=== PATIENT | female | born 1950 | race Caucasian/White ===

== ENCOUNTER 2020-03-17 14:35 | Outpatient (CLI) | payer MEDICARE, SELFPAY ==
--- NOTE | ~2020-03-17 | MM_ITS ---
EXAMINATION: MM screening radha BI w jaime HISTORY: Screening mammogram TECHNIQUE: Craniocaudal and mediolateral oblique 3-D tomosynthesis images were obtained and synthetic 2-D images were generated. CAD analysis was submitted and interpreted. COMPARISON: 03/03/2019, 02/26/2018, 02/22/2017 bilateral digital screening mammogram examinations BREAST PARENCHYMAL COMPOSITION: There are scattered areas of fibroglandular density. FINDINGS: Occasional benign calcifications. There is no evidence of suspicious mass, calcification, o r architectural distortion to suggest malignancy in either breast. There has been no suspicious inter hazel change. IMPRESSION: 1. No mammographic evidence of malignancy. 2. Recommend routine screening mammography in one year. BI-RADS Category 2: Benign finding(s). Reviewed, dictated and finalized at location A.
== END 2020-03-17 14:36 | disposition home or self-care (01) ==
LOC: ANHIMG 14:37
PROVIDERS: PCP Nurse Practitioner Family; Visit Provider Nurse Practitioner Family
DX: Z12.31 Encounter for screening mammogram for malignant neoplasm of breast (principal)
CPT/HCPCS: 77063; 77067

== ENCOUNTER 2021-03-21 17:23 | Outpatient (CLI) | payer MEDICARE, SELFPAY ==
--- NOTE | ~2021-03-21 | MM_ITS ---
EXAMINATION: MM screening radha BI w jaime HISTORY: Screening mammogram TECHNIQUE: Craniocaudal and mediolateral oblique 3-D tomosynthesis images were obtained and synthetic 2-D images were generated. CAD analysis was submitted and interpreted. COMPARISON: 03/17/2020, 03/03/2019, 02/26/2018 bilateral digital screening mammogram examinations BREAST PARENCHYMAL COMPOSITION: There are scattered areas of fibroglandular density. FINDINGS: There is no evidence of suspicious mass, calcification, or architectural distortion to sugg est malignancy in either breast. There has been no suspicious interval change. IMPRESSION: 1. No mammographic evidence of malignancy. 2. Recommend routine screening mammography in one year. BI-RADS Category 1: Negative Reviewed, dictated and finalized at location A.
== END 2021-03-21 17:24 | disposition home or self-care (01) ==
LOC: ANHIMG 17:25
PROVIDERS: PCP Nurse Practitioner Family; Visit Provider Nurse Practitioner Family
DX: Z12.31 Encounter for screening mammogram for malignant neoplasm of breast (principal)
CPT/HCPCS: 77063; 77067

== ENCOUNTER 2021-11-30 12:51 | Outpatient (CLI) | payer MEDICARE, SELFPAY ==
--- NOTE | ~2021-11-30 | US_ITS ---
EXAMINATION: US soft tissue UE LT DATE: 11/30/2021 13:37 INDICATION: Localized swelling, mass and lump at the left upper limb region of concern at the posteri or left upper arm TECHNIQUE: Multiple grayscale and Doppler ultrasound images of the posterior left upper arm were obta ined. COMPARISON: None FINDINGS: Subcutaneous tissues are unremarkable. There is a subtle approximately 12.8 x 7.2 x 6.1 cm isoechoic mass within the deeper musculature of the left upper arm. Portions of the margin of the apparent mass are not completely included within the [id number] of imaging. No other abnormal masses or fluid c ollections identified. IMPRESSION: 1. 12.8 x 7.2 x 6.1 cm isoechoic masslike region within the deeper musculature at the posterior left upper arm. Differential includes artifactual pseudomass related to either the normal fasicular penelope ecture of the muscle, focal myositis or neoplasm either benign such as intramuscular lipoma or malign ant. Would recommend further evaluation with postcontrast MRI. Reviewed, dictated and finalized at location B. IMPRESSION: 1. 12.8 x 7.2 x 6.1 cm isoechoic masslike region within the deeper musculature at the posterior left upper arm. Differential includes artifactual pseudomass r elated to either the normal fasicular architecture of the muscle, focal myositi s or neoplasm either benign such as intramuscular lipoma or malignant. Would re commend further evaluation with postcontrast MRI.
== END 2021-11-30 12:52 | disposition home or self-care (01) ==
PROVIDERS: PCP Nurse Practitioner Family; Visit Provider Nurse Practitioner Family
DX: R22.32 Localized swelling, mass and lump, left upper limb (principal)
CPT/HCPCS: 76882

== ENCOUNTER 2022-05-03 09:01 | Outpatient (CLI) | payer MEDICARE, SELFPAY ==
--- NOTE | ~2022-05-03 | MM_ITS ---
EXAMINATION: MM screening radha BI w jamie HISTORY: Screening TECHNIQUE: Craniocaudal and mediolateral oblique 3-D tomosynthesis images were obtained and synthetic 2-D images were generated. CAD analysis was submitted and interpreted. COMPARISON: Comparison to multiple prior studies sequentially, with oldest reviewed study dated 10/2015. BREAST PARENCHYMAL COMPOSITION: Breast composed of scattered areas of fibroglandular density FINDINGS: There is no evidence of suspicious mass, calcification, or architectural distortion to sugg est malignancy in either breast. There has been no suspicious interval change. IMPRESSION: 1. No mammographic evidence of malignancy. 2. Recommend routine screening mammography in one year. BI-RADS Category 1: Negative Reviewed, dictated and finalized at location A.
== END 2022-05-03 09:02 | disposition home or self-care (01) ==
LOC: ANHIMG 09:02
PROVIDERS: PCP Nurse Practitioner Family; Visit Provider Nurse Practitioner Family
DX: Z12.31 Encounter for screening mammogram for malignant neoplasm of breast (principal)
CPT/HCPCS: 77063; 77067

== ENCOUNTER 2022-05-09 09:22 | Outpatient (CLI) | payer MEDICARE, SELFPAY ==
--- NOTE | ~2022-05-09 | DEXA_ITS ---
Bone Density Report Name: ANGIE DAVIS Age: 72 Sex: Female Ethnicity: White Date of : 1950 Indication: postmenopausal; screening for osteoporosis; height loss; Referring Provider: GEORGETTE, ISSAC Dent Study: Bone densitometry was performed. Exam Date: May 09, 2022 Accession number: [id number] Bone Density: Region BMD T-score Z-score Classification AP Spine(L1-L4) 0.948 -0.9 1.2 Normal Femoral Neck (Left) 0.799 -0.4 1.3 Normal Total Hip (Left) 0.951 0.1 1.6 Normal Femoral Neck (Right) 0.733 -1.0 0.7 Normal Total Hip (Right) 0.949 0.1 1.6 Normal Total Hip Mean 0.950 0.1 1.6 Normal World Health Organization criteria for BMD impression classify patients as: Normal (T-score at or above -1.0), Osteopenia (T-score between -1.0 and -2.5), or Osteoporosis (T-score at or below -2.5). 10-year Fracture Risk: FRAX not reported because: All T-scores for Spine Total, Hip Total, Femoral Neck at or above -1.0 Clinical Information Provided by Patient: Has used the following medications: Vitamin D, Calcium Patient maximum height was 67.5 Menopause Age: 57 Drinks caffeinated beverages Onset of menses at age 15 Number of children 3 Impression: The patient has normal bone mass. Discussion: BONE DENSITY IS ABOVE THE MINIMUM DESIRABLE LEVEL AT ALL SKELETAL SITES TESTED. This patient?s bone mineral density is above the minimum desirable level (T-score -1.0 or better) at all sites measured. The patient should follow a healthful lifestyle (good nutrition with adequate calcium and vitamin D, and appropriate weight-bearing exercise). Follow-Up: Consider repeating this study in 5 years or sooner if there is some new clinical indication. Reported by: MACK on 05/09/2022 10:03:00 AM. Reviewed, dictated and finalized at location ATiffanie LANDEROS
== END 2022-05-09 09:23 | disposition home or self-care (01) ==
PROVIDERS: PCP Nurse Practitioner Family; Visit Provider Nurse Practitioner Family
DX: Z78.0 Asymptomatic menopausal state (principal)
CPT/HCPCS: 77080

== ENCOUNTER 2022-10-22 22:48 | Emergency (ER) | payer MEDICARE, SELFPAY ==
--- NOTE | ~2022-10-22 | XR_ITS ---
EXAMINATION: XR foot LT 2V DATE: 10/23/2022 01:41 INDICATION: Soft tissue infection of left second toe. TECHNIQUE: 2 views of left foot were obtained. COMPARISON: None. FINDINGS: Bone alignment is normal. There are changes of bunionectomy. No fracture. There are surgica l changes of head of second distal phalanx and base of second middle phalanx. There is a screw in the second proximal, middle, and distal phalanges. There is mild osteoarthritis of first metatarsophalan geal joint and some of the interphalangeal joints. IMPRESSION: 1. No specific evidence of osteomyelitis. 2. Arthrodesis procedure involving the second digit. 3. Bunionectomy. 4. Mild polyarticular osteoarthritis. Reviewed, dictated and finalized at location A.
[2022-10-22 22:50] VITALS: BP 156/68; PULSE 92; RESP 18; TEMP 36.1; O2SAT 99
--- NOTE | 2022-10-23 01:14 | ED.EXTPRO ---
HPI - Extremity Problem General Chief complaint: Extremity Problem,Nontraumatic Stated complaint: infected left second toe Time Seen by Provider: 10/23/22 01:01 Source: patient Mode of arrival: ambulatory Limitations: no limitations History of Present Illness HPI Narrative: This is a 72-year-old female presents the ED with chief complaint of a left second toe pain ongoing for about a week. States that pain and swelling is worsening in the toe. States redness is limited to the toe and does not extend into the foot. She reports some drainage for the past couple of days. States she had a hammertoe operation in August but has not had any problems with it. Pain is worse with walking. Denies fevers, chills, numbness, weakness. Denies any injuries to the foot. Related Data Home Medications Medication Instructions Recorded Confirmed amlodipine 5 mg tablet 5 mg PO DAILY 02/23/22 04/23/22 celecoxib 200 mg capsule 200 mg PO DAILY 02/23/22 04/23/22 cyclobenzaprine 10 mg tablet 10 mg PO TID 02/23/22 04/23/22 fluticasone propionate 50 1 spray intranasal DAILY 02/23/22 04/23/22 mcg/actuation nasal spray,suspension levothyroxine 150 mcg capsule 150 mcg PO DAILY 02/23/22 04/23/22 losartan 100 mg tablet 100 mg PO DAILY 02/23/22 04/23/22 metformin 500 mg/5 mL oral solution 500 mg PO DAILY 02/23/22 04/23/22 metoprolol succinate 50 mg 50 mg PO DAILY 02/23/22 04/23/22 tablet,extended release 24 hr montelukast 10 mg tablet 10 mg PO DAILY 02/23/22 04/23/22 omeprazole 40 mg capsule,delayed 40 mg PO DAILY 02/23/22 04/23/22 release pravastatin 40 mg tablet 40 mg PO DAILY 02/23/22 04/23/22 zolpidem 6.25 mg tablet,extended 6.25 mg PO QHS 02/23/22 04/23/22 release,multiphase Allergies Allergy/AdvReac Type Severity Reaction Status Date / Time grass pollen Allergy Unknown Unknown Verified 10/22/22 22:48 No Known Allergies Allergy Verified 10/22/22 22:48 Review of Systems Review of Systems: CONSTITUTIONAL: Denies fever, chills, or sweats. EYES: Denies visual changes, redness, or discharge. ENT: Denies rhinorrhea, congestion, sore throat, or otalgia. CARDIOVASCULAR: Denies chest pain, palpitations, or edema. RESPIRATORY: Denies cough or dyspnea. GASTROINTESTINAL: Denies abdominal pain, nausea, vomiting, or diarrhea. GENITOURINARY: Denies dysuria or hematuria. SKIN: Denies rash or itching. MUSCULOSKELETAL: Denies back pain, joint pain, or myalgia. NEUROLOGIC: Denies headache, numbness, dizziness, or weakness. PSYCHIATRIC: Denies anxiety or depression. [facility] Past Medical History Medical History Carpal tunnel syndrome Surgical History Surgical History H/O total knee replacement History of bladder surgery History of bunionectomy Presence of left artificial knee joint Presence of right artificial knee joint Family History Family History Other Family history of arthritis Family history of malignant neoplasm of breast in first degree relative Family history of malignant neoplasm of urinary bladder Social History Social History Smoking status: Never smoker Alcohol intake: never Substance use: never Lack of Transportation: No Lack of Food: Never True Current Housing: I Have Housing Concerned About Future Housing: No Difficulty Paying Gas/Electric Bills: No Difficulty Paying for Meds: No Currently Unemployed: No Education: Master's Degree or Higher Difficulty w/ Childcare or Family Care: No Exam Narrative: GENERAL: Well-appearing, well-nourished, and in no acute distress. HEAD: Normocephalic, atraumatic. EYES: PERRLA and EOMI. ENT: Nares clear, no rhinorrhea or epistaxis. Mucous membranes moist. Oropharynx without tonsillar hypertrophy exudate or other lesions. NE
[2022-10-23 01:47] LABS: Basophils Absolute Auto 0.1 K/mm3 (0.0-0.1); Basophils Percent Auto 0.7 % (0.2-1.2); Eosinophils Absolute Auto 0.2 K/mm3 (0-0.3); Eosinophils Percent Auto 2.9 % (0-4.4); Hematocrit 39.5 % (37.0-47.0); Hemoglobin 12.9 g/dL (12.0-15.0); Immature Granulocyte Absolute 0.02 K/mm3 (0.00-0.031); Immature Granulocyte Percent A 0.3 % (0-0.5); Lymphocytes Absolute Auto 2.52 K/mm3 (0.9-3.2); Lymphocytes Percent Auto 36.6 % (18.3-44.2); Mean Corpuscular HGB Conc 32.7 g/dl (32-36); Mean Corpuscular Hemoglobin 31.5 pg (26-34); Mean Corpuscular Volume 96.3 fl (80-100); Mean Platelet Volume 9.5 fl (7.4-10.4); Monocytes Absolute Auto 0.5 K/mm3 (0.1-0.6); Monocytes Percent Auto 7.7 % (2.6-8.5); Neutrophils Absolute Auto 3.6 K/mm3 (1.3-6.7); Neutrophils Percent Auto 51.8 % (45.5-73.1); Platelet Count Result 345 k/mm3 (150-375); Red Cell Distribution Width 12.8 % (11.5-14.5); White Blood Count 6.9 K/mm3 (4.5-10.0)
[2022-10-23 01:58] LABS: Anion Gap 7 mmol/L (8-16); Blood Urea Nitrogen 19 mg/dL (7-17); Calcium 9.3 mg/dL (8.4-10.2); Carbon Dioxide 28 mmol/L (22-30); Chloride 102 mmol/L (98-107); Estimated CRCL calculation 130 ml/min; Estimated Glomerular Filt Rate > 60; Glucose 138 mg/dL (65-110); Potassium 4.1 mmol/L (3.4-5.0); Sodium 137 mmol/L (137-145)
[2022-10-23 02:23] VITALS: BP 150/72; PULSE 80; RESP 15; O2SAT 98
[2022-10-23] MEDS: DOXYCYCLINE HYCLATE 100 MG TABLET PO (03:14)
[2022-10-23] MEDS: CEPHALEXIN 500 MG CAPSULE PO (03:14)
[2022-10-23 03:17] VITALS: BP 142/76; PULSE 87; RESP 15; O2SAT 99
== END 2022-10-23 03:19 | disposition home or self-care (01) ==
PROVIDERS: Emergency Provider Physician Assistant; PCP Nurse Practitioner Family
DX: L03.032 Cellulitis of left toe (principal)
CPT/HCPCS: 36415; 73620; 80048; 85025; 99283; A9270

== ENCOUNTER 2023-07-04 08:55 | Outpatient (CLI) | payer MEDICARE, SELFPAY ==
--- NOTE | ~2023-07-04 | MM_ITS ---
EXAMINATION: MM screening radha BI w jaime HISTORY: Screening mammogram, family history of breast cancer in her mother. TECHNIQUE: Craniocaudal and mediolateral oblique 3-D tomosynthesis images were obtained and synthetic 2-D images were generated. CAD analysis was submitted and interpreted. COMPARISON: 05/03/2022, 03/21/2021, 03/17/2020 BREAST PARENCHYMAL COMPOSITION: There are scattered areas of fibroglandular density. FINDINGS: No suspicious mass, calcification, or architectural distortion are identified in either rasheed ast to suggest malignancy. There has been no suspicious interval change. IMPRESSION: 1. No mammographic evidence of malignancy. 2. Recommend routine screening mammography in one year. BI-RADS Category 1: Negative Reviewed, dictated and finalized at location A. TEACHER
== END 2023-07-04 08:56 | disposition home or self-care (01) ==
PROVIDERS: PCP Nurse Practitioner Family; Visit Provider Nurse Practitioner Family
DX: Z12.31 Encounter for screening mammogram for malignant neoplasm of breast (principal)
CPT/HCPCS: 77063; 77067

== ENCOUNTER 2024-02-09 21:40 | Emergency (ER) | payer MEDICARE, SELFPAY ==
--- NOTE | ~2024-02-09 | XR_ITS ---
EXAMINATION: XR chest 2V DATE: 02/09/2024 22:32 INDICATION: Cough and shortness of breath. TECHNIQUE: Frontal and lateral views of the chest were obtained. COMPARISON: Chest 2 views 11/22/2006 FINDINGS: There is mild atelectasis in left lower lung zone. Calcified left lung nodules are consiste nt with old granulomatous disease. No pleural effusion or pneumothorax. The heart size is normal. The re are prominent pericardial fat pads. IMPRESSION: 1. Mild atelectasis in left lower lung zone. Reviewed, dictated and finalized at location A.
[2024-02-09 22:16] VITALS: BP 155/68; PULSE 80; RESP 20; TEMP 37.4; O2SAT 98
[2024-02-09 23:36] LABS: Influenza A QL RT-PCR Negative (Negative); Influenza B QL RT-PCR Negative (Negative); SARS-CoV-2 RNA PCR Positive (Negative)
[2024-02-10] VITALS (8 sets, daily range): BP systolic 147–171; BP diastolic 59–81; PULSE 75–87; RESP 14–20; O2SAT 96–97
--- NOTE | 2024-02-10 02:40 | ED.URI ---
HPI - URI/Sore Throat General Chief Complaint: Upper Respiratory Infection Stated Complaint: URI Time Seen by Provider: 02/10/24 00:32 History of Present Illness HPI Narrative: Patient presenting with URI symptoms since Saturday, her got sick 1st though he is not as sick as her, she has been coughing a lot, with runny nose and body aches. Related Data Home Medications Medication Instructions Recorded Confirmed amlodipine 5 mg tablet 5 mg PO DAILY 02/23/22 04/23/22 celecoxib 200 mg capsule 200 mg PO DAILY 02/23/22 04/23/22 cyclobenzaprine 10 mg tablet 10 mg PO TID 02/23/22 04/23/22 fluticasone propionate 50 1 spray intranasal DAILY 02/23/22 04/23/22 mcg/actuation nasal spray,suspension levothyroxine 150 mcg capsule 150 mcg PO DAILY 02/23/22 04/23/22 losartan 100 mg tablet 100 mg PO DAILY 02/23/22 04/23/22 metformin 500 mg/5 mL oral solution 500 mg PO DAILY 02/23/22 04/23/22 metoprolol succinate 50 mg 50 mg PO DAILY 02/23/22 04/23/22 tablet,extended release 24 hr montelukast 10 mg tablet 10 mg PO DAILY 02/23/22 04/23/22 omeprazole 40 mg capsule,delayed 40 mg PO DAILY 02/23/22 04/23/22 release pravastatin 40 mg tablet 40 mg PO DAILY 02/23/22 04/23/22 zolpidem 6.25 mg tablet,extended 6.25 mg PO QHS 02/23/22 04/23/22 release,multiphase Allergies Allergy/AdvReac Type Severity Reaction Status Date / Time grass pollen Allergy Unknown Unknown Verified 02/10/24 01:13 codeine AdvReac Confusion Verified 02/10/24 01:13 Review of Systems Review of Systems: All systems reviewed & are unremarkable except as noted in HPI and below PMFSH Past Medical History Medical History Carpal tunnel syndrome Surgical History Surgical History H/O total knee replacement History of bladder surgery History of bunionectomy Presence of left artificial knee joint Presence of right artificial knee joint Family History Family History Other Family history of arthritis Family history of malignant neoplasm of breast in first degree relative Family history of malignant neoplasm of urinary bladder Social History Social History Smoking status: Never smoker Alcohol intake: never Substance use: never Lack of Transportation: No Lack of Food: Never True Current Housing: I Have Housing Concerned About Future Housing: No Difficulty Paying Gas/Electric Bills: No Difficulty Paying for Meds: No Currently Unemployed: No Education: Master's Degree or Higher Difficulty w/ Childcare or Family Care: No Exam Narrative: EXAMINATION OF ORGAN SYSTEMS/BODY AREAS: Constitutional: Vital signs per nursing GENERAL:[No acute distress, non-toxic appearing.] HEAD: Normal with no signs of head trauma. EYES: EOMI, conjunctiva normal ENT: Hearing grossly intact LUNGS: Nonlabored breathing. Clear to auscultation bilaterally HEART: [Regular rate and rhythm] ABD: [Soft], [nontender to palpation] EXT: Normal range of motion SKIN: [No rashes or lesions.] NEURO: [Alert and oriented x 3. No gross focal sensory or strength deficits.] PSYCH: Normal affect Course Vital Signs Vital signs: Vital Signs Temperature 99.4 F 02/09/24 22:16 Pulse Rate 80 02/09/24 22:16 Respiratory Rate 20 02/09/24 22:16 Blood Pressure 155/68 H 02/09/24 22:16 Pulse Oximetry 98 02/09/24 22:16 Oxygen Delivery Room Air 02/09/24 22:16 Temperature 99.4 F 02/09/24 22:16 Pulse Rate 78 02/10/24 01:23 Respiratory Rate 20 02/10/24 01:23 Blood Pressure 163/64 H 02/10/24 01:23 Pulse Oximetry 96 02/10/24 01:23 Oxygen Delivery Room Air 02/10/24 01:12 MDM - URI/Sore Throat MDM Narrative Medical decision making narrative: Patient presents here with URI symptoms, and sic
== END 2024-02-10 01:25 | disposition home or self-care (01) ==
PROVIDERS: Emergency Provider Emergency Medicine; PCP Nurse Practitioner Family
DX: U07.1 COVID-19 (principal); Z79.84 Long term (current) use of oral hypoglycemic drugs; Z79.899 Other long term (current) drug therapy
CPT/HCPCS: 71046; 87636; 99283

== ENCOUNTER 2025-03-11 14:39 | Outpatient (CLI) | payer MEDICARE, SELFPAY ==
--- OUTSIDE RECORDS SUMMARY | 2002-01-28 09:30 | XMS_ITS | Continuity of Care Document ---
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 , [address], [place], [address], [place]. tel:[phone] Referring Provider: Magali Kaplan MD, [address], [place], [address]. tel:[phone] Family History Family Member Type Diagnosis Age At Onset No Information Payers Payer name Insurance type Covered republican ID Authoriza tion(s) No Information Social History Type Description Quantity Date Captured Comments Sex Female Smoking Status No Information Chief Complaint And Reason For Visit No Information Reason For Referral Reason For Referral No Information History Of Present Illness Encounter Date Complaint History Of Prese nt Illness No Information Functional Status Date Functional Assessmen t No Information Instructions Date Instruction Additional Infor mation No Information Assessments Type Assessment Date No Information Patient Care Teams Name Effective Dates (start - stop) Status Members No Information
--- NOTE | 2025-03-11 14:48 | ECHO_ITS ---
Patient Info Name: Dee Cobos Age: 74 years : 1950 Gender: Female Ht: 67 in Wt: 240 lbs BSA: 2.32 m2 HR: 108 bpm BP: 167 / 90 mmHg Technical Quality: Good Exam Date: 03/11/2025 3:00 PM Patient Status: O Admit Date: 03/11/2025 Exam Type: CA echo doppler color flow Complete two-dimensional, color flow and Doppler transthoracic echocardiogram is performed. Fruit Room Hand: Donnell Upton III Attending Provider: Mitesh Wren DO Summary 1. Complete two-dimensional, color flow and Doppler transthoracic echocardiogram is performed. 2. Left ventricular chamber dimension is normal. 3. Left ventricular systolic function is normal, estimated at 60-65. 4. The left ventricular diastolic function is grade I diastolic dysfunction. 5. E/e' 5 is not elevated. 6. Left atrial chamber dimension is mildly enlarged. 7. There is mild aortic valve sclerosis. 8. There is mild aortic valve regurgitation. 9. There is trace pulmonic regurgitation. Left Ventricle E/e' 5 is not elevated. Left ventricular chamber dimension is normal. Left ventricular systolic function is normal, estimated at 60-65. The left ventricular diastolic function is grade I diastolic dysfunction. Right Ventricle Right ventricular chamber dimension is normal. Right ventricular systolic function is normal and with normal TAPSE 1.8 cm. Left Atria Left atrial chamber dimension is mildly enlarged. Right Atria Right atrial chamber dimension is normal. Aortic Valve The aortic valve is trileaflet. There is mild aortic valve sclerosis. There is no aortic valve stenosis. There is mild aortic valve regurgitation. Pulmonic Valve There is trace pulmonic regurgitation. Mitral Valve There is no mitral valve stenosis. There is no mitral valve regurgitation. Tricuspid Valve There is no tricuspid valve regurgitation. Pericardium/Pleural There is no pericardial effusion. Inferior Vena Cava Normal inferior vena cava with >50% collapse upon inspiration consistent with normal right atrial pressure, 5 mmHg. Aorta The aortic root size at the sinus of Valsalva is normal. Left Ventricular Outflow Tract Name Value Normal LVOT 2D LVOT Diameter 2.2 cm LVOT Doppler LVOT Peak Velocity 101 cm/s LVOT Peak Gradient 4 mmHg LVOT Mean Gradient 2 mmHg LVOT VTI 23 cm LVOT VTI/AV VTI Ratio 1.0 LVOT Stroke Volume 90 ml LVOT CO 17.0 l/min LVOT CI 7.3 l/min/m2 Pulmonic Valve Name Value Normal PV Doppler PV Peak Velocity 106 cm/s PV Peak Gradient 5 mmHg PV Mean Gradient 2 mmHg Mitral Valve Name Value Normal MV Doppler MV Peak Gradient 4 mmHg MV Mean Gradient 1 mmHg MV Area (Cont Eq VTI) 3.3 cm2 MV Diastolic Function MV E Peak Velocity 57 cm/s MV A Peak Velocity 90 cm/s MV E/A 0.6 MV Decel Time (PW) 248 ms MV Annular TDI MV E/e' (Septal) 6.1 MV E/e' (Lateral) 5.2 MV E/e' (Average) 5.6 Tricuspid Valve Name Value Normal Estimated PAP/RSVP RA Pressure 5 mmHg <=5 TV Annular TDI TV Lateral Joan s' Velocity 12.3 cm/s >=9.5 Aortic Valve Name Value Normal AV Doppler AV Peak Velocity 130 cm/s AV Peak Gradient 7 mmHg AV Mean Gradient 3 mmHg AV VTI 24 cm AV Area (Cont Eq VTI) 3.8 cm2 >=3.0 AV Area (Cont Eq Doroteo) 3.0 cm2 AV DI (Doroteo) 0.77 AV Regurgitation 2D LVOT Area 3.9 cm2 Ventricles Name Value Normal LV Dimensions 2D/MM IVS Diastolic Thickness (2D) 1.1 cm 0.6-1.0 LVID Diastole (2D) 4.7 cm 3.8-5.2 LVIW Diastolic Thickness (2D) 1.0 cm 0.6-0.9 LVID Systole (2D) 3.6 cm 2.2-3.5 LVOT Diameter 2.2 cm LV Mass (2D Cubed) 175.65 g 67.00-162.00 LV Mass Index (2D Cubed) 76 g/m2 43-95 Relative Wall Thickness (2D) 0.43 <=0.42 LV Fractional Shortening/Ejection Fraction 2D/MM LV Fractional Shortening (2D) 23 % 27-45 LV EF (2D Teichholz) 47 % LV Diastolic Volume (4C MOD) 114 ml LV EF (4C MOD) 66 % LV Diastolic Volume (2C MOD) 76 ml LV EF (2C MOD) 54 % LV Diastolic Volume (BP MOD) 96 ml 46-106 LV Diastolic Volume Index (BP MOD) 41 ml/m2 29-61 LV Systolic Volume (BP MOD) 37 ml 14-42 LV Systolic Volume Index (BP MOD) 16 ml/m2 8-24 LV EF (BP MOD) 61 % 54-74 LV Diastolic Length (4C) 8.3 cm LV Systolic Length (4C) 6.7 cm LV Stroke Volume (4C MOD) 75 ml Atria Name Value Normal LA Dimensions LA Volume (4C A-L) 77 ml LA Volume (BP A-L) 75 ml RA Dimensions RA Systolic Major [place] Length (4C) 4.8 cm 2.2-2.8 RA Area (4C) 15.7 cm2 <=18.0 Report Signatures
== END 2025-03-11 14:40 | disposition home or self-care (01) ==
LOC: ANHCARD 14:40
PROVIDERS: PCP Nurse Practitioner Family; Visit Provider Internal Medicine Cardiovascular Disease
DX: I35.1 Nonrheumatic aortic (valve) insufficiency (principal); I51.89 Other ill-defined heart diseases; I35.8 Other nonrheumatic aortic valve disorders
CPT/HCPCS: 93306

== ENCOUNTER 2025-06-29 09:30 | Outpatient (CLI) | payer MEDICARE, SELFPAY ==
--- NOTE | ~2025-06-29 | DEXA_ITS ---
Bone Density Report Name: ANGIE DAVIS Age: 75 Sex: Female Ethnicity: White Date of : 1950 Indication: postmenopausal; screening for osteoporosis; height loss; Referring Provider: ISSAC PALOMINO Study: Bone densitometry was performed. Exam Date: June 29, 2025 Accession number: [id number] Bone Density: Region BMD T-score Z-score Classification AP Spine(L1-L4) 0.960 -0.8 1.5 Normal Femoral Neck (Left) 0.794 -0.5 1.5 Normal Total Hip (Left) 1.010 0.6 2.2 Normal Femoral Neck (Right) 0.715 -1.2 0.8 Osteopenia Total Hip (Right) 0.930 -0.1 1.6 Normal Total Hip Mean 0.970 0.3 1.9 Normal World Health Organization criteria for BMD impression classify patients as: Normal (T-score at or above -1.0), Osteopenia (T-score between -1.0 and -2.5), or Osteoporosis (T-score at or below -2.5). 10-year Fracture Risk(1): Major Osteoporotic Fracture 8.9% Hip Fracture 1.2% Reported Risk Factors: [place] (), Neck BMD=0.715, BMI=39.6 (1) FRAX(R) Version 3.08. Fracture probability calculated for an untreated patient. Fracture probability may be lower if the patient has received treatment. Previous Exams: Region Exam Age BMD T-score BMD Change BMD Change Date g/cm2 vs Baseline vs Previous AP Spine (L1-L4) 06/29/2025 75 0.960 -0.8 -0.005 (-0.5%) 0.012 (1.3%) 05/09/2022 72 0.948 -0.9 -0.017 (-1.7%) -0.017 (-1.7%) 01/28/2015 64 0.965 -0.7 Total Hip(Left) 06/29/2025 75 1.010 0.6 0.042 (4.4%)* 0.059 (6.2%)* 05/09/2022 72 0.951 0.1 -0.016 (-1.7%) -0.014 (-1.4%) 09/09/2018 68 0.965 0.2 -0.003 (-0.3%) -0.003 (-0.3%) 01/28/2015 64 0.967 0.2 Total Hip(Right) 06/29/2025 75 0.930 -0.1 -0.030 (-3.1%) -0.019 (-2.0%) 05/09/2022 72 0.949 0.1 -0.011 (-1.2%) 0.024 (2.6%) 09/09/2018 68 0.925 -0.1 -0.035 (-3.6%) -0.035 (-3.6%) 01/28/2015 64 0.960 0.1 *Denotes significance at 95% confidence level, LSC for AP Spine = 0.022 g/cm2, LSC for Total Hip = 0.027 g/cm2 Clinical Information Provided by Patient: Has used the following medications: Vitamin D, Calcium Patient maximum height was 67.5 Menopause Age: 57 Drinks caffeinated beverages Onset of menses at age 15 Number of children 3 Impression: The patient has low bone mass, based on the Right Femoral Neck T-score. The patient has an estimated ten-year risk of hip fracture of 1.2% and an estimated ten-year risk of major fracture of 8.9%, based on the WHO FRAX algorithm. No significant bone loss was observed. Discussion: BONE DENSITY IS LOW AT ONE OR MORE SKELETAL SITES. This patient's lowest T-score is low at one or more skeletal sites. It meets the World Health Organization's (WHO) criteria for ?low bone mass? (T-score between -1.0 and -2.5). The patient's 10-year risk of fracture as calculated by FRAX is less than the threshold where pharmacological therapy is recommended by the National Osteoporosis Foundation (NOF). However, all treatment decisions require clinical judgment and consideration of individual patient factors, including patient preferences, comorbidities, previous drug use, risk factors not captured in the FRAX model (e.g., frailty, falls, vitamin D deficiency, increased bone turnover, interval significant decline in bone density) and possible under or overestimation of fracture risk by FRAX. The patient should follow a healthful lifestyle (good nutrition with adequate calcium and vitamin D, and appropriate weight-bearing exercise). Follow-Up: Consider repeating this study in 2 to 3 years to reassess this patient's status, or sooner if there is some new clinical indication. Reported by: KUTR on 06/29/2025 10:13:00 AM. Reviewed, dictated and finalized at location A.
--- OUTSIDE RECORDS SUMMARY | 2025-06-29 09:47 | XMS_ITS | Clinical Summary ---
Author Organization [facility] Address [address] [place] [address] Care Team Providers Care Maintenance Specialist Name Role Phone Magali Kaplan MD Primary Care Provider [phone] Source Comments [facility],non-owned Affiliates and Associated Physician Practices is amultiple site organization consisting of ambulatory clinics and hospital sitesin [place], [place], [place] and [place]. This disclosure is being madepursuant to the Care Everywhere program and may not contain all information available regarding this patient. Last updated 18.[facility] Allergies No known active allergies Medications * Be aware that medications may not be up to date on this document. Alwaysverify current medications with the patient. levothyroxine (LEVOXYL) 150 MCG tablet Once a day Active montelukast (SINGULAIR) 10 MG tablet Once a day Active celecoxib (CELEBREX) 200 MG capsule Once a day Active losartan (COZAAR) 25 MG tablet Once a day Active hydrocodone-acet aminophen (NORCO) 5-325 MG tablet Take 1-2 Tabs by mouth every 4 hours as needed for Pain. 40 Tab 0 12/10/2013 Active NEXIUM 40 MG capsule 06/14/2014 Active terbinafine (LAMISIL) 250 MG tablet 06/14/2014 Active cyclobenzaprine (FLEXERIL) 5 MG TABS tablet 07/26/2014 Active Active Problems No known active problems Family History Medical History Relation Name Comments Breast Cancer after age 50 or unknown Maternal Grandmo ther Hypertension Mother Relation Name Status Comments Maternal Grandmother Mother Social History Tobacco Use Types Packs/Day Years Used Date Smoking Tobacco: Never Smokeless Tobacco: Never Alcohol Use Standard Drinks/Week Comments Yes 0 (1 standard drink = 0.6 oz pur e alcohol) 1 glass of wine once per month Comments No Sex and Gender Information Value Date Recorded Sex Assigned at Not on file Legal Sex Female 5:30 AM DIPPER FISH Gender Identity Not on file Sexual Orientation Not on file Occupation Industry Job Start Date Job End Date [employer] Not on file Not on file Not on file Last Filed Vital Signs Vital Sign Reading Time Taken Comments Blood Pressure 148/82 08/03/2014 10:17 AM DIPPER FISH Pulse 85 08/03/2014 10:17 AM DIPPER FISH Temperature 36.9 C (98.4 F) 12/10/2013 1:55 PM CDT Respiratory Rate 20 08/03/2014 10:17 AM DIPPER FISH Oxygen Saturation 99% 12/10/2013 1:55 PM CDT Inhaled Oxygen Concentration - - Weight 101.6 kg (224 lb) 08/03/2014 10:17 AM DIPPER FISH Height 172.7 cm (5' 8) 12/10/2013 7:40 AM CDT Body Mass Index 34.06 12/10/2013 7:40 AM CDT Plan of Treatment Health Maintenance Due Date Last Done Comments BONE DENSITY TESTING 1950 COLOGUARD (AGES 45-75) - COL ON CA SCREENING 1950 COLON MONITORING 1950 COLONOSCOPY - COLON CA SCREENING 1950 CT COLONOGRAPHY - COLON CA SCREENING 1950 Colorectal Cancer Screening 1950 FIT - COLON CA SCREENING 1950 FLEX SIG - COLON CA SCREENING 1950 LIPID TESTING 1950 MAMMOGRAM 1950 HEPATITIS C SCREENING 04/07/1970 DTAP/TDAP/TD VACCINES (1 - Tdap) 1971 PNEUMOCOCCAL VACCINE 50+ (1 of 1 - PCV) 2002 ZOSTER VACCINE (1 of 2) 2002 DEPRESSION SCREENING 07/01/2024 COVID-19 VACCINE ( - 2024-2 6 season) 2025 INFLUENZA VACCINE (#1) 2025 Respiratory Syncytial Virus (RSV) Vaccine Pt: or over 60 yrs (1 - 1-dose 75+ series) 2027 HEPATITIS B VACCINE Aged Out No longe r eligible based on patient's age to complete this topic HIB VACCINE Aged Out No longer eligi ble based on patient's age to complete this topic HPV VACCINE Aged Out No longer eligi ble based on patient's age to complete this topic MENINGOCOCCAL (Group B) VACC INE SHARED DECISION-MAKING Aged Out No longer eligibl e based on patient's age to complete this topic MENINGOCOCCAL GROUPS A/C/Y/W VACCINE Aged Out No longer eligible b ased on patient's age to complete this topic Medical Devices Implanted Type Area Regional Sales Representative Device Identifier Shelf Expiration Date Model / Serial / Lot Mesh Prolene 6in X 6in White Implanted:Qty: 1 on 12/10/2013 by Jaswant Banegas MD at [facility] Left: Abdomen [employer] 07/31/2018 PMH / / [id number] Insurance [facility] MEDICARE * Guarantor: Roscoepaulettedana Angie Rosi Account Type Relation to Patient Date of Phone Billing Address Personal/Family Self 1950 [facility] [place] [address] [facility] MEDICARE MEDICARE Member Subscriber Plan / Payer (Ef fective for All Dates) Name:Angie Davis Member ID:[id number] Relation to Subscriber:Self Name:ANGIE DAVIS Subscriber ID:[id number] Payer ID:Not on file Group ID:Not on file Type:Medicare [address] [place] MEDICARE MEDICARE AN[place] Advance Directives * FULL RESUSCITATION (Latest Code Status on File) Date Activated Date Inactivated Comments 04/14/2012 12:20 PM 04/15/2012 1:22 PM Care Teams Maintenance Specialist Relationship Specialty Start Date End Date Magali Kaplan MD PCP - General Family Medicine 11/14/11
--- OUTSIDE RECORDS SUMMARY | 2025-06-29 09:47 | XMS_ITS | Encounter Summary ---
Author Organization [facility] Address [address] [place] [address] Care Team Providers Care Product Promoter Retail Pet Name Role Phone Magali Kaplan MD Primary Care Provider Encounter Details Date Type Department Care Team (Late st Contact Info) Description 10/09/2018 Lab Requisition [facility] Care DermPath Lab [address] [place] [address] Abigail Padilla DO [address] [facility] [address] [place] [address] Social History Tobacco Use Types Packs/Day Years Used Date Smoking Tobacco: Never Smokeless Tobacco: Never Alcohol Use Standard Drinks/Week Comments Yes 0 (1 standard drink = 0.6 oz pur e alcohol) 1 glass of wine once per month Comments No Sex and Gender Information Value Date Recorded Sex Assigned at Not on file Legal Sex Female 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 Gender Identity Not on file Sexual Orientation Not on file Occupation Industry Job Start Date Job End Date [employer] Not on file Not on file Not on file documented as of this encounter Plan of Treatment Not on file documented as of this encounter Procedures Procedure Name Priority Date/Time Associated Diagnosis Comments DERMATOPATHOLOGY Routine 10/08/2018 12:0 0 AM CDT documented in this encounter Results * DERMATOPATHOLOGY (10/08/2018 12:00 AM CDT) Case Report Dermatopathology Report Case: [id number] Authorizing Provider: Abigail Padilla DO Collected: 10/08/2018 12:00 AM Pathologist: Emmie Camara MD Received: 10/09/2018 12:31 PM Specimen: Skin, right palm 3:11 PM CDT DERMATOPATHOLOGY LABORATORY Final Diagnosis Specimen A. SKIN, right palm: CIRCUMSCRIBED PALMAR HYPOKERATOSIS, CONSISTENT WITH (L98.9) (see microscopic description and comment) 3:11 PM CDT DERMATOPATHOLOGY LABORATORY at 1511 CDT Clinical History Circumscribed ulrich hypokeratosis. 3:11 PM CDT DERMATOPATHOLOGY LABORATORY Gross Description Specimen A: Received is one formalin filled container labeled with the patient's name and designated right palm. The specimen consists of a shave measuring 5n9x8po. Jar 0. 3:11 PM CDT DERMATOPATHOLOGY LABORATORY Microscopic Description Specimen A. SKIN, right palm: Sections show acral skin. There is a well demarcated decrease in the thickness of the stratum corneum. There is no significant associated inflammation. Grocott's methenamine silver (GMS) stain fails to highlight fungal elements in the available sections. 3:11 PM CDT DERMATOPATHOLOGY LABORATORY Disclaimer An external and internal positive and negative controls are appropriate for the histochemical, immunohistochemical and immunofluorescence stain(s) in this case (if any), except where stated explicitly. The performance characteristics of the stain(s) cited in this report were developed and its performance characteristic determined by the Dermatopathology Laboratory at [facility], directed by Dr. Mark Cash. These tests need not be, and therefore are not, approved by the [place] Food and Drug Administration. The tests are used for clinical purposes. Billing Codes Specimen Charges Stain Charges 27308 1 61541 1 3:11 PM CDT DERMATOPATHOLOGY LABORATORY Embedded Images 3:11 PM CDT DERMATOPATHOLOGY LABORATORY Pathology/Cytolog y TISSUE SPECIMEN FROM SKIN / Unknown 10/08/2018 10/09/2018 12:31 PM CDT us Abigail Gayathri Padilla DO LAB - PATHOLOGY/CYTOLOGY ORDERABLES Final Result DERMATOPATHOLOGY LABORATORY [facility] - Department of Dermatology [address] [place] [address], 5th Floor Lab [address] [phone] documented in this encounter Visit Diagnoses Not on filedocumented in this encounter Care Teams Product Promoter Retail Pet Relationship Specialty Start Date End Date Magali Kaplan MD PCP - General Family Medicine 11/14/11 documented as of this encounter
--- OUTSIDE RECORDS SUMMARY | 2025-06-29 09:47 | XMS_ITS | Encounter Summary ---
Author Organization [facility] Address [address] [place] [address] Care Team Providers Care Truck Body Builder Apprentice Name Role Phone Magali Kaplan MD Primary Care Provider [phone] Encounter Details Date Type Department Care Team (Late st Contact Info) Description 11/13/2019 Lab Requisition [facility] Care DermPath Lab [address] [facility] [address] [facility] [place] [address] Abigail Padilla DO [address] [facility] [address] [place] [address] Social History Tobacco Use Types Packs/Day Years Used Date Smoking Tobacco: Never Smokeless Tobacco: Never Alcohol Use Standard Drinks/Week Comments Yes 0 (1 standard drink = 0.6 oz pur e alcohol) 1 glass of wine once per month Comments No Sex and Gender Information Value Date Recorded Sex Assigned at Not on file Legal Sex Female 5:30 AM SUPERVISOR CUSTOMER COMPLAINT SERVICE Gender Identity Not on file Sexual Orientation Not on file Occupation Industry Job Start Date Job End Date [employer] Not on file Not on file Not on file documented as of this encounter Plan of Treatment Not on file documented as of this encounter Procedures Procedure Name Priority Date/Time Associated Diagnosis Comments DERMATOPATHOLOGY Routine 11/12/2019 12:0 0 AM CDT documented in this encounter Results * DERMATOPATHOLOGY (11/12/2019 12:00 AM CDT) Case Report Dermatopathology Report Case: [id number] Authorizing Provider: Abigail Padilla DO Collected: 11/12/2019 12:00 AM Ordering Location: [facility] Derm[facility] Lab Received: 11/13/2019 06:45 AM Pathologist: Chaparrita Troy MD Specimen: Skin, left lower back 0 12:43 PM CDT DERMATOPATHOLOGY LABORATORY Final Diagnosis Specimen A. 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 The specimen consists of a shave biopsy measuring 6x5x1 mm. Jar 0. 0 12:43 PM CDT DERMATOPATHOLOGY LABORATORY Microscopic Description Specimen A. SKIN, left lower back: This is a compound nevus. There is architectural disorder characterized by a lentiginous proliferation of melanocytes between irregular nevus nests of cells along the dermal-epidermal junction. There is underlying lamellar fibroplasia of the papillary dermis. The intradermal component is bland in appearance and matures with depth. (Compound Grayson's Nevus or Compound Dysplastic Nevus) 0 12:43 PM CDT DERMATOPATHOLOGY LABORATORY Disclaimer An external and internal positive and negative controls are appropriate for the histochemical, immunohistochemical and immunofluorescence stain(s) in this case (if any), except where stated explicitly. The performance characteristics of the stain(s) cited in this report were developed and its performance characteristic determined by the Dermatopathology Laboratory at [facility], directed by Dr. Mark Cash. These tests need not be, and therefore are not, approved by the [place] Food and Drug Administration. The tests are used for clinical purposes. Billing Codes Specimen Charges Stain Charges 77341 1 0 12:43 PM CDT DERMATOPATHOLOGY LABORATORY Embedded Images 0 12:43 PM CDT DERMATOPATHOLOGY LABORATORY Pathology/Cytolog y TISSUE SPECIMEN FROM SKIN / Unknown 11/12/2019 11/13/2019 6:45 AM CDT us Abigail Padilla DO LAB - PATHOLOGY/CYTOLOGY ORDERABLES Final Result DERMATOPATHOLOGY LABORATORY [facility] - Department of Dermatology [facility]/[address] [phone] documented in this encounter Visit Diagnoses Not on filedocumented in this encounter Care Teams Truck Body Builder Apprentice Relationship Specialty Start Date End Date Magali Kaplan MD PCP - General Family Medicine 11/14/11 documented as of this encounter
== END 2025-06-29 09:31 | disposition home or self-care (01) ==
PROVIDERS: PCP Nurse Practitioner Family; Visit Provider Nurse Practitioner Family
DX: M85.88 Other specified disorders of bone density and structure, other site (principal); I15.2 Hypertension secondary to endocrine disorders; Z78.0 Asymptomatic menopausal state; Z13.820 Encounter for screening for osteoporosis
CPT/HCPCS: 77080